=== PATIENT | female | born 1935 | race Caucasian/White ===

== ENCOUNTER 2016-10-23 10:03 | Emergency (ER) | payer MEDICARE, OTHER ==
[~2016-10-23] VITALS: Ht 160 cm; Wt 68.9 kg
[~2016-10-23 10:03] MED LIST: ASPI325T8 PO; ATOR10TA PO; SULF1TAB24 PO
[2016-10-23] MEDS ORDERED: FAMOTIDINE 20 MG/2 ML VIAL IVP ONE (10:30)
[2016-10-23] MEDS ORDERED: IV NORMAL SALINE 1000ML BAG 1,000 ML IV ONE (10:30)
[2016-10-23] MEDS ORDERED: ONDANSETRON PF 4 MG/2 ML VIAL. IV ONE (10:30)
[2016-10-23 10:37] LABS: BASO # 0.1 x10^3/uL (0.0-0.2); BASO % 2 % (0-3); EOS % 1 % (0-3); HEMATOCRIT 42.8 % (36.0-47.0); HEMOGLOBIN 14.8 g/dL (12.0-15.5); LYMPH # 0.7 x10^3/uL (1.0-4.8); LYMPH % 20 % (24-48); MEAN CORPUSCULAR HEMOGLOBIN 31 pg (25-35); MEAN CORPUSCULAR HGB CONC 35 g/dL (31-37); MEAN CORPUSCULAR VOLUME 88 fL (79-100); MONO % 9 % (0-9); NEUT % 68 % (31-73); PLATELET COUNT 314 x10^3/uL (140-400); RED BLOOD COUNT 4.86 x10^6/uL (3.50-5.40); RED CELL DISTRIBUTION WIDTH 13.2 % (11.5-14.5); WHITE BLOOD COUNT 3.7 x10^3/uL (4.0-11.0)
[2016-10-23 10:47] LABS: INR 1.1 (0.8-1.1); PROTHROMBIN TIME PATIENT 13.7 SEC (11.7-14.0)
--- NOTE | 2016-10-23 11:00 | RAD ---
One or more of the following individualized dose reduction techniques were utilized for this examination: 1. Automated exposure control 2. Adjustment of the mA and/or kV according to patient size 3. Use of iterative reconstruction technique CT brain without contrast. History headache, TIA last Monday CT scan of brain was done without contrast. Comparison is made with a study from October 17. There is diffuse atrophy. There is no intracranial hemorrhage. Ventricles are normal in size. Sinuses are clear. There is decreased density in the white matter from microvascular changes. An acute CVA is not identified. Impression: 1. No intracranial hemorrhage or acute change noted.
[2016-10-23 11:02] LABS: CKMB MASS < 0.5 ng/mL (0.0-3.6); CREATINE KINASE 44 U/L (26-192)
--- NOTE | 2016-10-23 11:08 | PHYS DOC ---
Past Medical History Past Medical History: Cancer, High Cholesterol, TIA, UTI, Other Additional Past Medical Histor: thyroid, ovary CA Past Surgical History: Hysterectomy, Oophorectomy Alcohol Use: Rarely Drug Use: None Adult General Chief Complaint Chief Complaint: HEADACHE HPI HPI Patient is a 81 year old female member of [employer] with history of high cholesterol, ovarian cancer and treated, TIA, urinary tract infection currently on treatment who presents today stating she was seen in the ED and admitted 7 days ago for a TIA. Patient states she was discharged. She states she 's had a 6 out of 10 posterior headache since then. Patient denies this being the worst headache in her life. Denies any disorientation, denies any dizziness , denies any dysarthria, denies any paresthesias. Patient's also complaining of nausea vomiting and generalized abdominal pain that began this morning. She states she thought she was constipated and was taking MiraLAX for couple days with no success. Patient states she took some Dulcolax. She states this morning her stools were loose. Patient denies any fever. She is currently on Bactrim for UTI. Patient denies any hematemesis or melena. Review of Systems Review of Systems Constitutional: Denies fever or chills [] Eyes: Denies change in visual acuity, redness, or eye pain [] HENT: Denies nasal congestion or sore throat [] Respiratory: Denies cough or shortness of breath [] Cardiovascular: No additional information not addressed in HPI [] GI: Generalized abdominal pain nausea and vomiting : Currently being treated for UTI no symptoms Musculoskeletal: Denies back pain or joint pain [] Integument: Denies rash or skin lesions [] Neurologic: Posterior occipital headache Endocrine: Denies polyuria or polydipsia [] Current Medications Current Medications Current Medications Medications (Trade) Dose Ordered Sig/Wilner Start Time Stop Time Status Last Admin Dose Admin Famotidine (Pepcid) 20 mg 1X ONCE 10/23/16 10:30 10/23/16 10:31 DC 10/23/16 10:57 20 MG Ondansetron HCl (Zofran) 4 mg 1X ONCE 10/23/16 10:30 10/23/16 10:31 DC 10/23/16 10:57 4 MG Sodium Chloride 1,000 ml @ 1,000 mls/hr 1X ONCE 10/23/16 10:30 10/23/16 11:29 DC 10/23/16 10:57 1,000 MLS/HR Allergies Allergies Allergies Coded Allergies Type Severity Reaction Last Updated Verified No Known Drug Allergies 10/17/16 No Physical Exam Physical Exam Constitutional: Well developed, well nourished, no acute distress, non-toxic appearance. [] HENT: Normocephalic, atraumatic, bilateral external ears normal, oropharynx moist, no oral exudates, nose normal. [] Eyes: PERRLA, EOMI, conjunctiva normal, no discharge. [] Neck: Normal range of motion, no tenderness, supple, no stridor. [] Cardiovascular:Heart rate regular rhythm, no murmur [] Lungs & Thorax: Bilateral breath sounds clear to auscultation [] Abdomen: Bowel sounds normal, soft, no tenderness, no masses, no pulsatile masses. [] Skin: Warm, dry, no erythema, no rash. [] Back: No tenderness, no CVA tenderness. [] Extremities: No tenderness, no cyanosis, no clubbing, ROM intact, no edema. [] Neurologic: Alert and oriented X 3, normal motor function, normal sensory function, no focal deficits noted. Cranial nerves II through XII intact Psychologic: Affect normal, judgement normal, mood normal. [] Current Patient Data Vital Signs Vital Signs Date Time Temp Pulse Resp B/P (MAP) Pulse Ox O2 Delivery O2 Flow Rate FiO2 10/23/16 13:49 75 22 123/61 (81) 98 Room Air 10/23/16 10:14 97.8 97.8 Lab Values Laboratory Tests Test 10/23/16 10:20 10/23/16 11:18 10/23/16 12:00 White Blood Count 3.7 x10^3/uL (4.0-11.0) L Red Blood Count 4.86 x10^6/uL (3.50-5.40) Hemoglobin 14.8 g/dL (12.0-15.5) Hematocrit 42.8 % (36.0-47.0) Mean Corpuscular Volume 88 fL (79-100) Mean Corpuscular Hemoglobin 31 pg (25-35) Mean Corpuscular Hemoglobin Concent 35 g/dL (31-37) Red Cell Distribution Width 13.2 % (11.5-14.5) Platelet Count 314 x10^3/uL (140-400) Neutrophils (%) (Auto) 68 % (31-73) Lymphocytes (%) (Auto) 20 % (24-48) L Monocytes (%) (Auto) 9 % (0-9) Eosinophils (%) (Auto) 1 % (0-3) Basophils (%) (Auto) 2 % (0-3) Neutrophils # (Auto) 2.5 x10^3uL (1.8-7.7) Lymphocytes # (Auto) 0.7 x10^3/uL (1.0-4.8) L Monocytes # (Auto) 0.3 x10^3/uL (0.0-1.1) Eosinophils # (Auto) 0.1 x10^3/uL (0.0-0.7) Basophils # (Auto) 0.1 x10^3/uL (0.0-0.2) Prothrombin Time 13.7 SEC (11.7-14.0) Prothrombin Time INR 1.1 (0.8-1.1) PTT 27 SEC (24-38) Sodium Level 139 mmol/L (136-145) Potassium Level 4.6 mmol/L (3.5-5.1) Chloride Level 104 mmol/L (98-107) Carbon Dioxide Level 22 mmol/L (21-32) Anion Gap 13 (6-14) Blood Urea Nitrogen 14 mg/dL (7-20) Creatinine 1.2 mg/dL (0.6-1.0) H Estimated GFR (Cockcroft-Gault) 43.1 BUN/Creatinine Ratio 12 (6-20) Glucose Level 118 mg/dL (70-99) H Lactic Acid Level 1.6 mmol/L (0.4-2.0) Calcium Level 9.3 mg/dL (8.5-10.1) Magnesium Level 2.2 mg/dL (1.8-2.4) Total Bilirubin 0.4 mg/dL (0.2-1.0) Aspartate Amino Transferase (AST) 16 U/L (15-37) Alanine Aminotransferase (ALT) 23 U/L (14-59) Alkaline Phosphatase 77 U/L (46-116) Creatine Kinase 44 U/L (26-192) Creatine Kinase MB (Mass) < 0.5 ng/mL (0.0-3.6) Creatine Kinase MB Relative Index % (0-4) Troponin I Quantitative < 0.017 ng/mL (0.000-0.055) Total Protein 8.1 g/dL (6.4-8.2) Albumin 4.3 g/dL (3.4-5.0) Albumin/Globulin Ratio 1.1 (1.0-1.7) Lipase 146 U/L (73-393) Procalcitonin < 0.10 ng/mL (0.00-0.10) Glucose (Fingerstick) 91 mg/dL (70-99) Urine Collection Type Unknown Urine Color Yellow Urine Clarity Clear Urine pH 5.5 Urine Specific [place] 1.015 Urine Protein Negative mg/dL (NEG-TRACE) Urine Glucose (UA) Negative mg/dL (NEG) Urine Ketones (Stick) Negative mg/dL (NEG) Urine Blood Negative (NEG) Urine Nitrite Negative (NEG) Urine Bilirubin Negative (NEG) Urine Urobilinogen Dipstick 0.2 mg/dL (0.2 mg/dL) Urine Leukocyte Esterase Negative (NEG) Urine RBC 0 /HPF (0-2) Urine WBC 0 /HPF (0-4) Urine Squamous Epithelial Cells None /LPF Urine Bacteria 0 /HPF (0-FEW) Urine Mucus Slight /LPF Laboratory Tests 10/23/16 10:20 Laboratory Tests 10/23/16 10:20 EKG EKG [] Radiology/Procedures Radiology/Procedures [] Course & Med Decision Making Course & Med Decision Making Pertinent Labs and Imaging studies reviewed. (See chart for details) This is a 81-year-old female patient was admitted 7 days ago for possible TIA and urinary tract infection as well as confusion. She presents today with nausea vomiting diarrhea and abdominal pain, and posterior headache. Headache has been going on for [address] of the head was negative for any acute findings. CBC with a WBC of 3.7, CMP with no acute findings. Urine analysis is negative for infection. Acute abdominal series was done which was noted for possible ileus. Follow-up CT of the abdomen and pelvic was done which is negative for any acute findings. Patient was given a liter of fluid and Zofran in the ED. She states her headache has resolved and she feels better and would like to go home. She was discharged with instructions to push fluids. Discharged with Zofran. Instructed to continue with her antibiotics until completed and follow-up with her own PCP on Monday. Jennifer Disclaimer Dragon Disclaimer This electronic medical record was generated, in whole or in part, using a voice recognition dictation system. Departure Departure Impression: Primary Impression: Abdominal pain Additional Impressions: Headache Nausea and vomiting Diarrhea Disposition: HOME, SELF-CARE Condition: STABLE Referrals: KALINA BRAXTON MD (PCP) Follow-up with your doctor on Monday Patient Instructions: Abdominal Pain, Diarrhea, [id number], General Headache Without Cause, [id number]-[id number], Nausea and Vomiting, [id number] Additional Instructions: You were seen for headache nausea vomiting and diarrhea as well as a slight abdominal pain. We recommend you push fluids. Follow-up with your doctor in the next 1-2 days. Come back to the ED if symptoms worsen. Complete your antibiotics. Take the prescribed medicine as ordered. You can take Miralx daily to prevent constipation and Magnesium Citrate for the times you are constipated. Scripts Ondansetron (ZOFRAN ODT) 4 Mg Tab.rapdis 1 TAB SL Q8HRS, #15 TAB Prov: ENOCH VALERA APRN 10/23/16 Magnesium Citrate (MAGNESIUM CITRATE) 296 Ml Solution 296 ML PO ONCE, #296 ML Prov: ENOCH VALERA APRN 10/23/16 Polyethylene Glycol 3350 (MIRALAX) 17 Gm Powd.pack 1 PACKET PO DAILY, #30 PACKET 3 Refills Prov: ENOCH VALERA APRN 10/23/16 Problem Qualifiers Primary Impression: Abdominal pain Abdominal location: generalized Qualified Codes: R10.84 - Generalized abdominal pain Additional Impressions: Headache Headache type: unspecified Headache chronicity pattern: acute headache Intractability: not intractable Qualified Codes: R51 - Headache Nausea and vomiting Vomiting type: unspecified Vomiting Intractability: non-intractable Qualified Codes: R11.2 - Nausea with vomiting, unspecified Diarrhea Diarrhea type: unspecified type Qualified Codes: R19.7 - Diarrhea, unspecified YADIRAPARKERENOCH APRN Oct 23, 2016 11:08
[2016-10-23 11:42] LABS: ALBUMIN 4.3 g/dL (3.4-5.0); ALBUMIN/GLOBULIN RATIO 1.1 (1.0-1.7); CALCIUM 9.3 mg/dL (8.5-10.1); TOTAL PROTEIN 8.1 g/dL (6.4-8.2)
[2016-10-23 11:43] LABS: CREATININE 1.2 mg/dL (0.6-1.0); GFR 43.1; TOTAL BILIRUBIN 0.4 mg/dL (0.2-1.0)
[2016-10-23 11:44] LABS: POTASSIUM 4.6 mmol/L (3.5-5.1)
[2016-10-23 11:46] LABS: MAGNESIUM 2.2 mg/dL (1.8-2.4)
--- NOTE | 2016-10-23 12:08 | EKG ---
[facility] [address] [place] [address] Test Date: 2016-10-23 Test Time: 10:33:47 Pat Name: ROSSY SAENZ Department: Room: Gender: F [employer] Analyst: : 1935 Requested By: ENOCH VALERA Order Number: [id number] Reading MD: Measurements Intervals [place] Rate: 84 P: 20 MD: 170 QRS: -7 QRSD: 80 T: -4 QT: 342 QTc: 407 Interpretive Statements SINUS RHYTHM LEFTWARD AXIS OTHERWISE NORMAL ECG RI6.01 No previous ECG available for comparison
[2016-10-23 12:14] LABS: BILIRUBIN,URINE NEGATIVE (NEG); GLUCOSE,URINE NEGATIVE (NEG); NITRITE,URINE NEGATIVE (NEG); PH,URINE 5.5; PROTEIN,URINE NEGATIVE (NEG-TRACE); UROBILINOGEN,URINE 0.2 mg/dL (0.2 mg/dL)
[2016-10-23 12:23] LABS: BACTERIA,URINE 0 /HPF (0-FEW); RBC,URINE 0 /HPF (0-2); WBC,URINE 0 /HPF (0-4)
--- NOTE | 2016-10-23 13:10 | RAD ---
Three-view acute abdominal series. History: Constipation 3 views were taken for acute abdominal series. Lungs are clear. There is a small hiatus hernia behind the heart. There is no pleural effusion. There are air-fluid levels in the colon. Patient's had previous abdominal and pelvic surgery. There is no definite small bowel obstruction. An ileus is possible. There is not an abnormal amount of stool in the colon. There is degenerative change in the lumbar spine with mild scoliosis. Impression: 1. Hiatus hernia. 2. No acute infiltrates. 3. Fluid levels in the colon possible ileus or gastroenteritis. 4. There is not an abnormal amount of stool in the colon. 5. Previous abdominal surgery.
[2016-10-23 13:49] VITALS: BP 123/61
--- NOTE | 2016-10-23 14:09 | RAD ---
One or more of the following individualized dose reduction techniques were utilized for this examination: 1. Automated exposure control 2. Adjustment of the mA and/or kV according to patient size 3. Use of iterative reconstruction technique CT abdomen and pelvis without contrast. History: Abdominal pain, nausea and vomiting, diarrhea CT scan of the abdomen and pelvis was done without contrast. There is mild atelectasis in the lung bases without other infiltrates. There is a moderate to large hiatus hernia. There is facet arthritis and degenerative change in the lumbar spine with mild scoliosis. A liver lesion is not identified. Gallbladder is normal without calcified gallstones. Spleen and adrenal glands are normal. There is no hydronephrosis or calculus in the kidneys. There is a left renal cyst. There is atrophy and fatty infiltration of the pancreas. A pancreatic mass is not identified. There is no adenopathy. There are changes from surgery along the aorta and iliac vessels on the left. There is no bowel obstruction. There is no ascites. Appendix is not identified. There is diverticulosis of the colon without diverticulitis. Small bowel pattern is normal. There is a small umbilical hernia. Impression: 1. No bowel obstruction or acute finding in the abdomen. 2. Left renal cysts. 3. Previous surgery. 4. Hiatus hernia
[2016-10-23] MEDS ORDERED: ONDA4TAB10 SL (14:31)
[2016-10-23] MEDS ORDERED: MAGN296S9 PO (14:31)
[2016-10-23] MEDS ORDERED: POLY17PO29 PO (14:31)
== END 2016-10-23 14:42 | disposition home or self-care (01) ==
LOC: ER 10:03
DX: R51 Headache (principal); R11.2 Nausea with vomiting, unspecified; R10.84 Generalized abdominal pain; R19.7 Diarrhea, unspecified; G45.9 Transient cerebral ischemic attack, unspecified; E78.00 Pure hypercholesterolemia, unspecified; Z85.43 Personal history of malignant neoplasm of ovary; Z90.710 Acquired absence of both cervix and uterus; Z87.440 Personal history of urinary (tract) infections; Z90.722 Acquired absence of ovaries, bilateral
CPT/HCPCS: 36415; 70450; 74022; 74176; 80053; 81001; 82553; 82962; 83605; 83690; 83735; 84145; 84484; 85027; 85610; 85730; 87040; 93005; 96361; 96374; 96375; 99285; J2405; J7030; S0028

== ENCOUNTER → 2017-07-04 | Outpatient (CLI) | payer MEDICARE, OTHER | END | disposition home or self-care (01) | LOC: KCIC US 12:15 | DX: R09.89 Other specified symptoms and signs involving the circulatory and respiratory systems (principal) | CPT/HCPCS: 93880 ==

== ENCOUNTER 2020-12-02 16:31 | Emergency (ER) | payer MEDICARE, OTHER ==
[~2020-12-02] VITALS: Ht 160 cm; Wt 71.8 kg
[~2020-12-02 16:31] MED LIST changes: +MAGN296S68 PO; +ONDA4TAB10 SL; +POLY17PO29 PO
--- NOTE | 2020-12-02 21:39 | PHYS DOC ---
Past Medical History Past Medical History: Cancer, High Cholesterol, TIA, UTI, Other Additional Past Medical Histor: thyroid, ovary CA Past Surgical History: Hysterectomy, Oophorectomy Smoking Status: Never Smoker Alcohol Use: Rarely Drug Use: None General Adult EDM: Chief Complaint: Left lower quadrant abdominal pain HPI: HPI: 85-year-old female presents to the emergency department complaint of left lower quadrant abdominal pain on and off for 4 days as well as some intermittent nausea and diarrhea, she says that her pain is gone away but did go to see her primary care doctor who advised her to come to the emergency department. She says the pain was coming and going, cramping, mild to moderate, no blood in stool, no chest pain or shortness of breath, she is vaccinated to coronavirus 19, no urinary symptoms, no known history of diverticulitis she says but is status post appendectomy and cholecystectomy. The patient does report a remote history of ovarian cancer 1998 status post bilateral salpingo-oophorectomy and hysterectomy she says Review of Systems: Review of Systems: General: no fevers , no chills, no general weakness Eyes: no blurred vision, no diplopia Skin: no rashes Neck: no swelling, no neck stiffness, no neck pain Heme: no bleeding, no lymph node enlargement Ear/Nose/Throat: No sore throat, no runny nose, no hearing loss, no difficulty swallowing Cardiovascular: no Chest pain, no palpitations Respiratory: No dyspnea, no cough, no hemoptysis Gastrointestinal: Positive for vomiting, diarrhea and abdominal pain however symptoms have resolved Genitourinary: no dysuria, no hematuria Musculoskeletal: no back pain, no leg pain, no arm pain, no arthralgia Neurologic: no headaches, no dizziness, no focal numbness/tingling, no focal weakness Psych: no depression, no anxiety, no SI/HI *All review of systems are negative other than what is noted above Heart Score: C/O Chest Pain: No Risk Factors: Risk Factors: DM, Current or recent (<one month) smoker, HTN, HLP, family history of CAD, obesity. Risk Scores: Score 0 - 3: 2.5% MACE over next 6 weeks - Discharge Home Score 4 - 6: 20.3% MACE over next 6 weeks - Admit for Clinical Observation Score 7 - 10: 72.7% MACE over next 6 weeks - Early Invasive Strategies Current Medications: Current Medications Medications (Trade) Dose Ordered Sig/Wilner Start Time Stop Time Status Last Admin Dose Admin Ondansetron HCl (Zofran) 4 mg 1X ONCE 12/02/20 22:00 12/02/20 22:01 Allergies: Allergies: Allergies Coded Allergies Type Severity Reaction Last Updated Verified No Known Drug Allergies 10/17/16 No Physical Exam: PE: Gen-well appearing, no acute distress Head: Normocephalic/Atraumatic ENT: atraumatic, PERRLA, EOMI, oropharynx clear Neck: supple, full ROM/strength, no JVD, no nuchal rigidity Lungs: no distress, speaks in full sentences, Clear to auscultation bilaterally CV: reg rate, rhythm, no murmus/rubs/gallops, peripheral pulses equal in all extremities Abdomen: soft/nontender, no guarding/rebound tenderness, no rigidity, non distended, normoactive bowel sounds Musculoskeletal: full ROM/strength in all extremities, atraumatic, no swelling Back: full range of motion/strength Skin: intact, no rashes Lymph: no gross CANDIDO Neuro: alert and oriented x 4, CN 2-12 grossly intact, Motor strength is 5/5 in all extremities, no focal sensory deficits, no focal ataxia, ambulatory with steady gait Psych: normal mood/affect Current Patient Data: Vital Signs: Vital Signs Date Time Temp Pulse Resp B/P (MAP) Pulse Ox O2 Delivery O2 Flow Rate FiO2 12/02/20 20:10 98.1 76 151/86 (81) 96 Room Air 98.1 EKG: EKG: [] Twelve-lead EKG was performed at 20 1:45 PM: Normal sinus rhythm, rate of 70, normal and nonischemic appearing EKG with normal axis and intervals Radiology/Procedures: Radiology/Procedures: [] Course & Med Decision Making: Course & Med Decision Making patient presents to the emergency department complaining of left lower quadrant abdominal pain and nausea/vomiting and diarrhea that appears to have resolved in the emergency department, abdomen is benign on exam comfort differential diagnosis entertained in this patient includes but not limited to GERD/gastritis, gastroenteritis, diverticulitis, colitis, UTI, kidney stone, pyelonephritis, pancreatitis, no clinical signs of incarcerated hernia, no pain out of proportion on exam, unlikely AAA, SBO, mesenteric ischemia, plan at this time is taken, labs and a CT of the abdomen and pelvis, closely monitor, r eevaluate exam her during her work-up in the emergency department and determine best course of action as more data becomes available Reevaluation at 11:05 PM: Feeling better, abdomen nontender, work-up negative, patient able discharge at this Patient was seen in the ED for abdominal pain that resolved in the ER, the imaging here in work-up was negative, I did advise her to stop the antibiotics as I do not see any active infection there is no apparent evidence of any emergency medical pathology at this time, patient was advised follow-up with their primary care provider /physician in the next 24-48 hours and to return to the ED before then if any new or worsening / concerning symptoms had developed. All questions and concerns were addressed at time of disposition Dragon Disclaimer: Dragon Disclaimer: This electronic medical record was generated, in whole or in part, using a voice recognition dictation system. Departure Departure Impression: Primary Impression: Abdominal pain Qualified Codes: R10.32 - Left lower quadrant pain Additional Impressions: Nausea and vomiting Diarrhea Disposition: HOME / SELF CARE / HOMELESS Condition: IMPROVED Referrals: KALINA BRAXTON MD (PCP) Within 48 hours Patient Instructions: Abdominal Pain Additional Instructions: Your tests here were okay, there was some blood in the urine which makes me suspicious that you may have potentially passed a kidney stone, otherwise I do not think you need to take the antibiotics anymore, drink plenty of fluids, I will give you a prescription for some nausea medicine, follow-up with your primary care doctor in the next 48 hours, return to the ER before then if any new or worsening/concerning symptoms develop Scripts Ondansetron Hcl (ZOFRAN) 4 Mg Tablet 1 TAB PO PRN Q6-8HRS for nausea, #12 TAB Prov: PRINCESS OCONNELL MD 12/02/20 PRINCESS OCONNELL MD Dec 02, 2020 21:39
[2020-12-02 21:43] LABS: BASO # 0.1 x10^3/uL (0.0-0.2); BASO % 1 % (0-3); EOS # 0.1 x10^3/uL (0.0-0.7); EOS % 2 % (0-3); HEMATOCRIT 40.9 % (36.0-47.0); HEMOGLOBIN 13.9 g/dL (12.0-15.5); LYMPH # 1.1 x10^3/uL (1.0-4.8); LYMPH % 26 % (24-48); MEAN CORPUSCULAR HEMOGLOBIN 30 pg (25-35); MEAN CORPUSCULAR HGB CONC 34 g/dL (31-37); MEAN CORPUSCULAR VOLUME 89 fL (79-100); MONO # 0.6 x10^3/uL (0.0-1.1); MONO % 14 % (0-9); NEUT # 2.5 x10^3/uL (1.8-7.7); NEUT % 58 % (31-73); PLATELET COUNT 325 x10^3/uL (140-400); RED BLOOD COUNT 4.62 x10^6/uL (3.50-5.40); RED CELL DISTRIBUTION WIDTH 13.2 % (11.5-14.5); WHITE BLOOD COUNT 4.3 x10^3/uL (4.0-11.0)
[2020-12-02 21:49] LABS: CALCIUM 9.4 mg/dL (8.5-10.1); CREATININE 1.2 mg/dL (0.6-1.0); GFR 42.7; POTASSIUM 4.5 mmol/L (3.5-5.1)
[2020-12-02 21:54] LABS: ALBUMIN 3.6 g/dL (3.4-5.0); TOTAL BILIRUBIN 0.3 mg/dL (0.2-1.0); TOTAL PROTEIN 7.2 g/dL (6.4-8.2)
[2020-12-02] MEDS ORDERED: ONDANSETRON PF 4 MG/2 ML VIAL. IVP ONE (22:00)
[2020-12-02 22:31] LABS: BILIRUBIN,URINE NEGATIVE (NEG); CLARITY,URINE CLEAR; COLOR,URINE YELLOW; NITRITE,URINE NEGATIVE (NEG); PH,URINE 5.5 (<5.0-8.0); PROTEIN,URINE NEGATIVE (NEG-TRACE); UROBILINOGEN,URINE 0.2 mg/dL (0.2 mg/dL)
[2020-12-02 22:38] LABS: BACTERIA,URINE 0 /HPF (0-FEW); RBC,URINE TNTC /HPF (0-2)
--- NOTE | 2020-12-02 23:00 | RAD ---
CT ABDOMEN+PELVIS WO INDICATION: abd pain, LLQ EXAM: Noncontrast CT of the abdomen and pelvis. Coronal and sagittal reformatted images were perform ed. PQRS compliance statement: One or more of the following individualized dose reduction techniques were utilized for this examinat ion: 1. Automated exposure control 2. Adjustment of the mA and/or kV according to patient size 3. Use of iterative reconstruction technique COMPARISON: 10/23/2016 FINDINGS: No free air, free fluid, or fluid collection. Lower chest: The visualized lower lungs are aerated. No pleural or pericardial effusion. Moderate-siz ed hiatal hernia. ABDOMEN: Liver: The noncontrast liver is homogeneous in attenuation. Gallbladder and biliary: Normal gallbladder without radiopaque stone. Normal caliber bile ducts. Spleen: Normal spleen. Pancreas: The noncontrast pancreas is homogeneous in attenuation without peripancreatic inflammatory changes. Adrenal glands: Normal adrenal glands. Kidneys and ureters: No opaque urinary calculi. Normal kidneys and ureters. GI tract: The stomach is decompressed and poorly evaluated. Normal caliber small bowel and colon. Col onic diverticulosis. Appendectomy. Vascular structures: Normal caliber abdominal aorta. Lymph nodes: No lymphadenopathy in the abdomen or pelvis. Left iliac chain PELVIS: Genitourinary system: Urinary bladder is decompressed. Hysterectomy. Surgical clips along the left il iac chain. SKELETAL STRUCTURES AND SOFT TISSUES: Degenerative changes of the spine IMPRESSION: 1. No acute findings. 2. Colonic diverticulosis. Electronically signed by: Jonah Townsend MD (12/02/2020 10:57 PM) [facility]
[2020-12-02] MEDS ORDERED: ONDA4TAB7 PO (23:07)
[2020-12-02 23:31] VITALS: BP 142/68
--- NOTE | 2020-12-03 05:05 | EKG ---
[facility] [address] [place] [address] Test Date: 2020-12-02 Test Time: 21:45:29 Pat Name: ROSSY SAENZ Department: Room: Gender: F [employer] Hand: : 1935 Requested By: PRINCESS OCONNELL Order Number: [id number] Reading MD: Measurements Intervals [place] Rate: 70 P: 41 NE: 186 QRS: -2 QRSD: 82 T: 1 QT: 394 QTc: 428 Interpretive Statements No previous ECG available for comparison
== END 2020-12-02 23:50 | disposition home or self-care (01) ==
LOC: ER 16:31
DX: R10.32 Left lower quadrant pain (principal); R11.2 Nausea with vomiting, unspecified; R19.7 Diarrhea, unspecified; E78.00 Pure hypercholesterolemia, unspecified; Z86.73 Personal history of transient ischemic attack (TIA), and cerebral infarction without residual deficits; Z90.710 Acquired absence of both cervix and uterus; Z90.722 Acquired absence of ovaries, bilateral; Z87.440 Personal history of urinary (tract) infections
CPT/HCPCS: 36415; 74176; 80053; 81001; 83690; 84484; 85025; 87086; 93005; 96374; 99285; J2405